=== PATIENT | male | born 1950 | race Two or more races ===

== ENCOUNTER → 2024-07-12 | Emergency (ER) | payer OTHER ==
[~2024-07-12] VITALS: Ht 175.3 cm; Wt 86.2 kg
[~2024-07-12] MED LIST: ACETAMINOPHEN 500 MG GEL..CAP PO ONE; GUAIFENESIN/DEXTROMETHORPHAN 10ML BLIST.PACK PO ONE; TAMS0.4C PO
[2024-07-12 16:30] LABS: HEMATOCRIT 40.6 % (39.0-48.0); HEMOGLOBIN 14.1 g/dL (13-16.00); MEAN CELL VOLUME 79.5 fL (80.0-100.00); MEAN CORPUSCULAR HEMOGLOBIN 27.6 pg (27.00-32.0); MEAN CORPUSCULAR HGB CONC 34.8 g/dl (32.0-36.0); PLATELET COUNT 135 K/uL (150-450); RED CELL DISTRIBUTION WIDTH 14.9 % (11.5-14.5)
== END | disposition left against medical advice (07) ==
LOC: ER 13:17
PROVIDERS: General Practice
DX: R53.81 Other malaise (principal); Z20.822 Contact with and (suspected) exposure to COVID-19